=== PATIENT | male | born 1990 | race Caucasian/White ===

== ENCOUNTER 2017-05-08 09:40 | Emergency (ER) | payer OTHER ==
[2017-05-08 09:52] VITALS: BP 123/71
[2017-05-08] MEDS ORDERED: CEPHALEXIN 250 MG CAPSULE PO STA (11:40)
[2017-05-08] MEDS ORDERED: ACYCLOVIR 200 MG CAPSULE PO STA (11:41)
--- NOTE | 2017-05-08 11:41 | ED Physician Documentation ---
History of Present Illness - Stated complaint Stated Complaint: FLU LIKE SYMPTOMS - Chief complaint Chief Complaint: Heent - History obtained from History obtained from: Patient - History of Present Illness Timing: How many days ago (4) - Additonal information Additional information: The patient is a 26-year-old male who complains of sore throat that started 4 days ago, with associated myalgias, fever and chills. He also complains of "bumps" on his penile shaft. He denies dysuria or penile discharge. He reports having heterosexual intercourse 6 days ago, and is concerned about STDs. On further review of systems he denies headache, cough, vomiting or diarrhea. He denies history of similar symptoms in the past. Review of Systems Constitutional: reports: Fever, Chills, Myalgias Eyes: denies: Irritation Ears: denies: Ear pain Nose: denies: Congestion Throat: reports: Sore throat Cardiac: denies: Chest pain / pressure Respiratory: denies: Dyspnea, Cough GI: denies: Abdominal Pain, Nausea, Vomiting : reports: Other ("bumps" on penile shaft.). denies: Dysuria, Discharge Skin: reports: Rash (on penis and groin.) Musculoskeletal: denies: Back pain, Joint pain Neurologic: denies: Headache PD PAST MEDICAL HISTORY - Past Medical History Cardiovascular: None Respiratory: None Neuro: None Endocrine/Autoimmune: None : None - Present Medications Home Medications: Ambulatory Orders Medication Instructions Recorded Confirmed Acyclovir 200 mg PO 5XD #50 capsule 05/08/17 Cephalexin 500 mg PO TID #20 tablet 05/08/17 - Allergies Allergies/Adverse Reactions: Allergies Allergy/AdvReac Type Severity Reaction Status Date / Time No Known Drug Allergies Allergy Verified 05/08/17 09:52 PD ED PE NORMAL - Vitals Vital signs reviewed: Yes (normal) - General General: Alert and oriented X 3, Well developed/nourished - HEENT HEENT: Atraumatic, Ears normal, Other (Enlarged tonsils with cryptogenic exudates bilaterally, more on the left than the right. No peritonsillar swelling.) - Neck Neck: Supple, no meningeal sign, No adenopathy, No JVD - Cardiac Cardiac: RRR, No murmur - Respiratory Respiratory: No respiratory distress, Clear bilaterally - Abdomen Abdomen: Soft, Non tender, No organomegaly - Male Male : Other (There are small erosions on the penile shaft as well as the groin at the base of the penis. There are no intact vesicles, and no pustules.) - Back Back: No CVA TTP - Derm Derm: Other (See the male report) - Extremities Extremities: No tenderness to palpate, Normal ROM s pain - Neuro Neuro: Alert and oriented X 3, No motor deficit, Normal speech Results - Vitals Vitals: Oxygen O2 Source Room air PD MEDICAL DECISION MAKING - ED course Complexity details: considered differential, d/w patient ED course: The patient's presentation is suggestive of acute herpes genitalis infection. In addition examination oropharynx reveals cryptogenic tonsillitis. His urethra was swabbed for GC and chlamydia culture, and penile erosions were swabbed for herpes simplex. Treatment in the emergency department included administration of cephalexin 500 mg orally, and acyclovir 200 mg orally. He is being discharged with prescriptions for both. I discussed with him the expected timing for culture results, antibiotic treatment and outpatient follow- up, as well as potentially worrisome signs or symptoms that should prompt reevaluation in the emergency department. Departure - Departure Disposition: 01 Home, Self Care Clinical Impression: Tonsillitis Herpes genitalia Qualifiers: Herpes simplex infection site: penis Qualified Code(s): A60.01 - Herpesviral infection of penis Condition: Stable Instructions: ED Herpes Simplex Virus Type 2, ED Tonsillitis Follow-Up: CHADD ROBERT [Primary Care Provider] - Prescriptions: Acyclovir 200 mg PO 5XD #50 capsule Cephalexin 500 mg PO TID #20 tablet Comments: Gargle with cool liquids. Take cephalexin 3 times daily as prescribed. Take acyclovir 5 times daily as prescribed. Follow-up with your primary physician as scheduled. Return to the emergency department if you develop increasing difficulty swallowing, or otherwise worsening symptoms. Forms: Activity restrictions Discharge Date/Time: 05/08/17 11:56
[2017-05-08] MEDS ORDERED: CEPHALEXIN 250 MG CAPSULE PO ONE (11:49)
[2017-05-08] MEDS ORDERED: ACYCLOVIR 200 MG CAPSULE PO ONE (11:50)
== END 2017-05-08 11:56 | disposition home or self-care (01) ==
LOC: ED 09:40
DX: J03.90 Acute tonsillitis, unspecified (principal); A60.01 Herpesviral infection of penis
CPT/HCPCS: 87491; 87529; 87591; 99283; A9270; 86694; 86695; 86696